=== PATIENT | female | born 1965 | race Caucasian/White ===

== ENCOUNTER → 2016-05-24 | Outpatient (CLI) | payer OTHER ==
[~2016-05-24] MED LIST: CEFD300C PO; METH4TAB27 PO
[2016-05-24 11:30] VITALS: BP 125/86
--- NOTE | 2016-05-24 11:30 | Urgent Care T Sheet Gen (E) ---
Intake General Temperature (Fahrenheit): 99.2 Pulse: 73 Blood Pressure Systolic: 125 Blood Pressure Diastolic: 86 Respirations: 18 SPO2: 100 Description of Symptoms Patient presents with nasal congestion, PND and sore throat. Symptoms have been present intermittent for 2 months however worsened over the last 10 days. Been taking Mucinex without improvement. No fever. No cough. No known history of allergies. History of Present Illness Home Meds Active Scripts Methylprednisolone (Medrol Dosepack)21 Tab/Pkt Tablet6 Tab PO DAILY Inflammation #1 PKT Ref 0 6 tabs po on day 1 then decrease by 1 tab daily until packet is gone Prov:SELZERALEXANDRA PA 05/24/16 Cefdinir 300 Mg [id number] Mg PO BID #14 CAP Prov:ALEXANDRA VEGA D PA 05/24/16 Respiratory Constitutional Symptoms: No syptoms reported EENTM: Ear pain Nose Congestion Throat pain Respiratory: No symptoms reported All Other Systems Reviewed Remaining Systems: All other systems reviewed with negative findings Physical Exam Physical Exam General Appearance: WD/WN No apparent distress Eyes, Ears, Nose, Throat Ex: TMs normal (air fluid bubbles) Pharyngeal erythema (cobblestone appearance. clear thick PND) Other (red, swollen nasal turbinate with thick drainage) Neck Exam: SuppleNo Lymphadenopathy Respiratory Exam: Lungs clear Normal breath sounds Cardiovascular Exam: Regular rate, rhythm Departure Urgent Care Impression Impression: Primary Impression: Sinusitis Qualified Code: J01.00 - Acute maxillary sinusitis, unspecified Additional Impression: Pharyngitis Qualified Code: J02.9 - Acute pharyngitis, unspecified Departure Disposition: HOME OR SELF-CARE Condition: Stable Additional Instructions: I have started the patient on Omnicef and Medrol dose pack for treatment of her symptoms. Her biggest complaint was her throat pain, most likely from constant drainage and irritation. Steroid should help with that Rest. Fluids Tylenol as needed for pain, no NSAIDs while on steroid Return as needed Patient understands DC instructions. All questions were answered. Scripts Methylprednisolone (Medrol Dosepack)21 Tab/Pkt Tablet6 Tab PO DAILY Inflammation #1 PKT Ref 0 6 tabs po on day 1 then decrease by 1 tab daily until packet is gone Prov:RAKESHZERALEXANDRA PA 05/24/16 Cefdinir 300 Mg [id number] Mg PO BID #14 CAP Prov:RAKESHZERIZAIAHALEXANDRA D PA 05/24/16 End of report . ALEXANDRA VEGA May 24, 2016 10:35
== END ==
LOC: MHUC 10:20
PROVIDERS: ATTEND Physician Assistant
DX: J01.00 Acute maxillary sinusitis, unspecified (principal); J02.9 Acute pharyngitis, unspecified
CPT/HCPCS: 99213